=== PATIENT | male | born 1985 | race Caucasian/White ===

== ENCOUNTER 2021-11-13 06:21 | Emergency (ER) | payer OTHER ==
[~2021-11-13] VITALS: Ht 198.1 cm; Wt 120.1 kg
--- NOTE | 2021-11-13 06:50 | PHYS DOC ---
General Adult HPI: HPI: Patient is a 36-year-old male coming in for epigastric pain is started around 2 AM, about 4.5 hours prior to arrival. Patient states that he has had similar pain in the past about 1 year ago. Was seen by head resident and told that it was related to stress and diet. He states the pain feels like a knife. Pain does not radiate. No nausea, vomiting or diarrhea. Patient had a normal bowel movement this morning. Patient tried taking Pepto-Bismol without improvement. Last p.o. intake was chicken and rice about 12 hours ago. Patient states he felt fine when he went to bed. Review of Systems: Review of Systems: All other systems within normal limits except for as noted in the HPI Physical Exam: PE: Constitutional: Well developed, well nourished, no acute distress, non-toxic appearance. [] HENT: Normocephalic, atraumatic, bilateral external ears normal, oropharynx moist, no oral exudates, nose normal. [] Eyes: PERRLA, EOMI, conjunctiva normal, no discharge. [] Neck: Normal range of motion, no tenderness, supple, no stridor. [] Cardiovascular:Heart rate regular rhythm, no murmur [] Lungs & Thorax: Bilateral breath sounds clear to auscultation [] Abdomen: Bowel sounds normal, soft, no tenderness, no masses, no pulsatile masses. [] Skin: Warm, dry, no erythema, no rash. [] Back: No tenderness, no CVA tenderness. [] Extremities: No tenderness, no cyanosis, no clubbing, ROM intact, no edema. [] Neurologic: Alert and oriented X 3, normal motor function, normal sensory function, no focal deficits noted. [] Psychologic: Affect normal, judgement normal, mood normal. [] EKG: EKG: [] Radiology/Procedures: Radiology/Procedures: [address] [address] IMAGING REPORT Signed PATIENT: LINN MIGUEL EACCOUNT: [id number] : 1985 LOCATION: ER AGE: 36 SEX: M EXAM STATUS: REG ER ORD. PHYSICIAN: LINDSEY FRANKEL MD REASON: ruq pain PROCEDURE: ABDOMEN OR LWR BACK LTD Cysts US ABDOMEN OR LOWER BACK LIMITED History: Right upper quadrant pain. Comparison: CT abdomen and pelvis 11/13/2021 Technique: Sonographic examination of the right upper quadrant of the abdomen. Findings: Pancreas: Mostly obscured by bowel gas and body habitus. Visualized portions unremarkable. Liver: The liver measures 17.2 cm. Liver echotexture is diffusely increased. No focal hepatic lesions. Hepatopetal flow in the portal vein. Gallbladder: Fixed shadowing stone at the gallbladder neck measuring approximately 1.6 cm. No gallbladder wall thickening or pericholecystic fluid. Bile ducts: The common duct measures 8 mm. Right kidney: 11.0 cm length. No focal lesion, calculi or hydronephrosis. Aorta/IVC: Visualized portions are unremarkable. Other: No ascites. Impression: 1. Fixed 1.6 cm stone at the gallbladder neck. No wall thickening or pericholecystic fluid to suggest acute cholecystitis. 2. Hepatic steatosis. 3. Mild common bile duct dilatation, 8 mm. Electronically signed by: Heber Pina MD (11/13/2021 9:42 AM) [id number] DICTATED AND SIGNED BY: HEBER PINA MD DATE: 11/13/21932 CC: LINDSEY FRANKEL MD; PCP,UNKNOWN ~MTH0 0 [] [place] [address] IMAGING REPORT Signed PATIENT: LINN MIGUEL EACCOUNT: [id number] : 1985 LOCATION: ER AGE: 36 SEX: M EXAM STATUS: REG ER ORD. PHYSICIAN: LINDSEY FRANKEL MD REASON: upper abd pain PROCEDURE: CT ABD PELV W/ IV CONTRST ONLY CT ABDOMEN+PELVIS W History: upper abd pain Comparison: None. Technique: After administration of intravenous contrast, helical CT of the abdomen and pelvis was performed from the lung bases through the ischial tuberosities. Coronal and sagittal reconstructions were obtained. 75 mL of Omnipaque 300 were used. One or more of the following dose reduction techniques were utilized: Automated exposure control (AEC), Adjustment of mA and/or kV according to patient size, Use of iterative reconstruction technique such as ASiR, CT scan done according to ALARA and image gently/image wisely Abdomen Findings: The visualized lung bases are clear. There are a couple of subcentimeter hepatic hypodensities, too small to characterize but likely cysts or hemangiomas. The gallbladder, pancreas, spleen, and bilateral adrenal glands are normal. Dilated common bile duct measures 11 mm. Symmetric renal enhancement. There is no focal renal mass. There is no hydronephrosis. The visualized loops of small bowel are normal. The visualized loops of large bowel are normal. There is no evidence of bowel obstruction. Appendix is normal. There is no free fluid. There is no mesenteric or retroperitoneal adenopathy. The abdominal aorta is normal in caliber. Pelvis Findings: Urinary bladder is normal. No pelvic free fluid. There is no pelvic or inguinal adenopathy. There is no acute bony abnormality. IMPRESSION: 1. Dilated common bile duct measures 11 mm in diameter. Correlate with laboratory values. Electronically signed by: Jonah Rodriguez MD (11/13/2021 8:18 AM) [id number] DICTATED AND SIGNED BY: JONAH RODRIGUEZ MD DATE: 11/13/21 0810 CC: LINDSEY FRANKEL MD; PCP,UNKNOWN ~MTH0 0 Heart Score: C/O Chest Pain: No Risk Factors: Risk Factors: DM, Current or recent (<one month) smoker, HTN, HLP, family history of CAD, obesity. Risk Scores: Score 0 - 3: 2.5% MACE over next 6 weeks - Discharge Home Score 4 - 6: 20.3% MACE over next 6 weeks - Admit for Clinical Observation Score 7 - 10: 72.7% MACE over next 6 weeks - Early Invasive Strategies Course & Med Decision Making: Course & Med Decision Making Pertinent Labs and Imaging studies reviewed. (See chart for details) Patient still complaining of severe pain despite fentanyl and Bentyl. Had consulted general surgery at [facility], Dr. Horn, regarding definitive management and transfer. He said he would see the patient for possible cholecystectomy and admit to the hospitalist. Went back to discuss plan with the patient he says the pain had completely resolved and has had a little bit of soreness. Discussed possible outpatient surgery consult, patient states he would rather see surgery as a outpatient. Discussed strict return precautions and diet modification [] Jeniffer Disclaimer: Jeniffer Disclaimer: This electronic medical record was generated, in whole or in part, using a voice recognition dictation system. Departure Departure: Impression: Primary Impression: Gallstone Disposition: HOME / SELF CARE / HOMELESS Condition: IMPROVED Referrals: PCP,UNKNOWN (PCP) Patient Instructions: Biliary Colic Scripts Dicyclomine Hcl (DICYCLOMINE HCL) 20 Mg Tablet 1 TAB PO PRN Q6HRS for abdominal pain for 3 Days, #10 TAB 1 Refill Prov: LINDSEY FRANKEL MD 11/13/21 Hydrocodone Bit/Acetaminophen (HYDROCODONE-APAP 5-300) 1 Each Tablet 1 TAB PO PRN Q6HRS PRN for PAIN for 3 Days, #10 TAB 0 Refills Prov: LINDSEY FRANKEL MD 11/13/21 LINDSEY FRANKEL MD Nov 13, 2021 06:50
[2021-11-13 06:58] LABS: BASO % 1 % (0-3); EOS % 0 % (0-3); HEMOGLOBIN 15.8 g/dL (13.0-17.5); LYMPH # 1.2 x10^3/uL (1.0-4.8); LYMPH % 14 % (24-48); MEAN CORPUSCULAR HEMOGLOBIN 29 pg (25-35); MEAN CORPUSCULAR HGB CONC 34 g/dL (31-37); MEAN CORPUSCULAR VOLUME 85 fL (79-100); MONO # 0.4 x10^3/uL (0.0-1.1); MONO % 5 % (0-9); NEUT # 6.5 x10^3uL (1.8-7.7); NEUT % 80 % (31-73); PLATELET COUNT 198 x10^3/uL (140-400); RED CELL DISTRIBUTION WIDTH 14.6 % (11.5-14.5); WHITE BLOOD COUNT 8.2 x10^3/uL (4.0-11.0)
[2021-11-13] MEDS ORDERED: ONDANSETRON PF 4 MG/2 ML VIAL. IVP ONE (07:00)
[2021-11-13 07:05] LABS: CALCIUM 8.7 mg/dL (8.5-10.1); CREATININE 1.1 mg/dL (0.7-1.3); GFR 74.9; POTASSIUM 4.1 mmol/L (3.5-5.1)
[2021-11-13 07:11] LABS: ALBUMIN 4.1 g/dL (3.4-5.0); ALBUMIN/GLOBULIN RATIO 1.3 (1.0-1.7); TOTAL BILIRUBIN 0.3 mg/dL (0.2-1.0); TOTAL PROTEIN 7.3 g/dL (6.4-8.2)
[2021-11-13] MEDS ORDERED: LIDO:MAALOX 1:1 20 ML SINGLE DOSE. PO ONE (07:15)
[2021-11-13] MEDS ORDERED: IOHEXOL 300 MG/ML 75 ML VIAL. IV ONE (07:15)
[2021-11-13] MEDS ORDERED: FAMOTIDINE 20 MG/2 ML VIAL IVP ONE (07:15)
[2021-11-13 07:19] LABS: BACTERIA,URINE 0 /HPF (0-FEW); CLARITY,URINE CLEAR; COLOR,URINE YELLOW; GLUCOSE,URINE NEG (NEG); NITRITE,URINE NEG (NEG); RBC,URINE OCC /HPF (0-2); SQUAMOUS EPITHELIAL CELL,UR OCC /LPF
[2021-11-13] MEDS ORDERED: CONTRAST GIVEN. MC PRN (07:30)
--- NOTE | 2021-11-13 08:20 | RAD ---
CT ABDOMEN+PELVIS W History: upper abd pain Comparison: None. Technique: After administration of intravenous contrast, helical CT of the abdomen and pelvis was per formed from the lung bases through the ischial tuberosities. Coronal and sagittal reconstructions wer e obtained. 75 mL of Omnipaque 300 were used. One or more of the following dose reduction techniques were utilized: Automated exposure control (AEC), Adjustment of mA and/or kV according to patient size , Use of iterative reconstruction technique such as ASiR, CT scan done according to ALARA and image g ently/image wisely Abdomen Findings: The visualized lung bases are clear. There are a couple of subcentimeter hepatic hypodensities, too small to characterize but likely cysts or hemangiomas. The gallbladder, pancreas, spleen, and bilateral adrenal glands are normal. Dilated common bile duct measures 11 mm. Symmetric renal enhancement. There is no focal renal mass. There is no hydronephrosis. The visualized loops of small bowel are normal. The visualized loops of large bowel are normal. There is no evidence of bowel obstruction. Appendix is normal. There is no free fluid. There is no mesenteric or retroperitoneal adenopathy. The abdominal aorta is normal in caliber. Pelvis Findings: Urinary bladder is normal. No pelvic free fluid. There is no pelvic or inguinal adenopathy. There is no acute bony abnormality. IMPRESSION: 1. Dilated common bile duct measures 11 mm in diameter. Correlate with laboratory values. Electronically signed by: Gerardo Rodriguez MD (11/13/2021 8:18 AM) [id number]
--- NOTE | 2021-11-13 09:45 | RAD ---
Cysts US ABDOMEN OR LOWER BACK LIMITED History: Right upper quadrant pain. Comparison: CT abdomen and pelvis 11/13/2021 Technique: Sonographic examination of the right upper quadrant of the abdomen. Findings: Pancreas: Mostly obscured by bowel gas and body habitus. Visualized portions unremarkable. Liver: The liver measures 17.2 cm. Liver echotexture is diffusely increased. No focal hepatic lesio ns. Hepatopetal flow in the portal vein. Gallbladder: Fixed shadowing stone at the gallbladder neck measuring approximately 1.6 cm. No gallbla dder wall thickening or pericholecystic fluid. Bile ducts: The common duct measures 8 mm. Right kidney: 11.0 cm length. No focal lesion, calculi or hydronephrosis. Aorta/IVC: Visualized portions are unremarkable. Other: No ascites. Impression: 1. Fixed 1.6 cm stone at the gallbladder neck. No wall thickening or pericholecystic fluid to sugges t acute cholecystitis. 2. Hepatic steatosis. 3. Mild common bile duct dilatation, 8 mm. Electronically signed by: Heber Ortiz MD (11/13/2021 9:42 AM) [id number]
[2021-11-13 09:49] VITALS: BP 130/81
[2021-11-13] MEDS ORDERED: MORPHINE SULFATE 4 MG/ML DISP.SYRIN. IV ONE (10:15)
[2021-11-13] MEDS ORDERED: DICYCLOMINE 20 MG/2 ML VIAL. IM ONE (10:15)
[2021-11-13] MEDS ORDERED: DICY20TA PO (11:21)
[2021-11-13] MEDS ORDERED: HYDR-3068 PO (11:21)
== END 2021-11-13 11:35 | disposition home or self-care (01) ==
LOC: ER 06:21
DX: K80.20 Calculus of gallbladder without cholecystitis without obstruction (principal)
CPT/HCPCS: 36415; 74177; 76705; 80053; 81001; 83690; 84484; 85025; 85379; 87086; 96372; 96374; 96375; 96376; 99285; J0500; J2405; J3010; J3490; Q9967